=== PATIENT | male | born 1960 | race Caucasian/White ===

== ENCOUNTER 2017-01-12 20:46 | Inpatient (IN) | payer MEDICARE, OTHER ==
[~2017-01-12] VITALS: Ht 182.9 cm; Wt 117.9 kg
[2017-01-12] MEDS ORDERED: SODIUM CHLORIDE 0.9% 1,000ML IVBOLUS ONE (21:30)
[2017-01-12 22:19] LABS: ASPARTATE AMINO TRANSFERASE 19 U/L (15-37); BLOOD UREA NITROGEN 19 mg/dL (7-18)
[2017-01-12] MEDS ORDERED: SODIUM CHLORIDE 0.9% 1,000 ML IV ONE (22:57)
[2017-01-12] MEDS ORDERED: ONDANSETRON 2MG/ML, 2ML IVPush PRN ×2 (23:00→23:30)
[2017-01-12] MEDS ORDERED: ONDANSETRON 2MG/ML, 2ML ONE (23:09)
[2017-01-12] MEDS ORDERED: ENALAPRILAT 1.25 MG/ML, 2ML IVPush PRN (23:30)
[2017-01-12] MEDS ORDERED: DOCUSATE 100 MG CAPSULE PO PRN (23:30)
[2017-01-12] MEDS ORDERED: POLYETHYLENE GLYCOL 17 GM PACKET PO PRN (23:30)
[2017-01-12] MEDS ORDERED: morphine SULFATE 10 MG/ML, 1ML IVPush PRN (23:30)
[2017-01-12] MEDS ORDERED: hydrALAzine 20 MG/ML, 1ML IVPush PRN (23:30)
[2017-01-12] MEDS ORDERED: ACETAMINOPHEN 325 MG TABLET PO PRN (23:30)
[2017-01-12] MEDS ORDERED: BISACODYL 10 MG SUPP PR PRN (23:30)
[2017-01-12] MEDS ORDERED: OXYcodone IR 5MG TABLET PO PRN (23:30)
[2017-01-13] MEDS: SODIUM CHLORIDE 0.9% 1,000 ML IV SCH ×2 (00:16→06:39)
[2017-01-13 00:32] VITALS: BP 99/64
[2017-01-13 02:51] VITALS: BP 113/64
[2017-01-13 03:30] LABS: ASPARTATE AMINO TRANSFERASE 15 U/L (15-37); BLOOD UREA NITROGEN 17 mg/dL (7-18)
[2017-01-13 09:27] VITALS: BP 108/71
[2017-01-13 14:30] VITALS: BP 108/70
[2017-01-13 20:00] VITALS: BP 113/72
[2017-01-13] MEDS ORDERED: GOLYTELY 4,000ML ORAL.SOL PO ONE (20:00)
[2017-01-14] MEDS: SODIUM CHLORIDE 0.9% 1,000 ML IV SCH ×2 (01:12→14:20)
[2017-01-14 02:00] VITALS: BP 108/79
[2017-01-14 06:03] LABS: BLOOD UREA NITROGEN 11 mg/dL (7-18)
[2017-01-14] MEDS ORDERED: FENTANYL PF 100 MCG/2ML ONE (06:52)
[2017-01-14] MEDS ORDERED: MIDAZOLAM 1 MG/ML, 5ML ONE (06:52)
[2017-01-14 07:59] VITALS: BP 110/72
[2017-01-14 13:26] VITALS: BP 120/76
== END 2017-01-14 17:00 | disposition home or self-care (01) | DRG 378 ==
LOC: ED 22:19 → EDIP 23:30 → 4EST 01-13 00:07
PROVIDERS: ADMIT Internal Medicine
PROC: 0DJD8ZZ Inspection of Lower Intestinal Tract, Via Natural or Artificial Opening Endoscopic (ICD-10-PCS; principal; 2017-01-14 10:00)
DX: K57.31 Diverticulosis of large intestine without perforation or abscess with bleeding (principal); D62 Acute posthemorrhagic anemia; E44.0 Moderate protein-calorie malnutrition; R00.0 Tachycardia, unspecified; E66.9 Obesity, unspecified; K64.0 First degree hemorrhoids; Z96.659 Presence of unspecified artificial knee joint; Z91.018 Allergy to other foods; Z68.35 Body mass index [BMI] 35.0-35.9, adult
CPT/HCPCS: 36415; 80048; 80053; 80061; 81003; 83036; 83735; 84439; 84443; 85014; 85018; 85025; 85610; 86850; 86900; 87324; 93005; 96361; 96374; 99152; 99153; J2250; J2405; J3010; J7030

== ENCOUNTER 2019-01-11 11:33 | Emergency (ER) | payer MEDICARE, MEDICAID ==
[~2019-01-11] VITALS: Ht 182.9 cm; Wt 119.8 kg
[2019-01-11 11:41] VITALS: BP 156/110
[2019-01-11] MEDS ORDERED: OXYcodone/APAP 5/325MG TABLET ONE (12:10)
[2019-01-11] MEDS ORDERED: OXYcodone/APAP 5/325MG TABLET PO ONE (12:30)
== END 2019-01-11 13:03 | disposition home or self-care (01) ==
LOC: ED 12:41
DX: S60.031A Contusion of right middle finger without damage to nail, initial encounter (principal); W20.8XXA Other cause of strike by thrown, projected or falling object, initial encounter; Y93.89 Activity, other specified; Y92.009 Unspecified place in unspecified non-institutional (private) residence as the place of occurrence of the external cause; Y99.8 Other external cause status
CPT/HCPCS: 29130; 99283

== ENCOUNTER 2020-08-29 12:34 | Emergency (ER) | payer MEDICARE, MEDICAID ==
[~2020-08-29] VITALS: Ht 182.9 cm; Wt 121.5 kg
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
[2020-08-29] MEDS ORDERED: KETOROLAC 30 MG/1 ML ONE (12:57)
--- NOTE | 2020-08-29 12:58 | NUR ---
RECVD REPORT FROM JOHN GALARZA
[2020-08-29] MEDS ORDERED: KETOROLAC 30 MG/1 ML IM ONE (13:00)
[2020-08-29 13:59] VITALS: BP 150/88
--- NOTE | 2020-08-29 13:59 | NUR ---
OFFERED PT [facility] FOR HOME. SPLINT APPLIED BY TECH.
== END 2020-08-29 14:01 | disposition home or self-care (01) ==
LOC: ED 13:00
DX: S60.221A Contusion of right hand, initial encounter (principal); M79.89 Other specified soft tissue disorders; I10 Essential (primary) hypertension; X58.XXXA Exposure to other specified factors, initial encounter; Y93.89 Activity, other specified; Y92.89 Other specified places as the place of occurrence of the external cause; Y99.8 Other external cause status
CPT/HCPCS: 29125; 73130; 96372; 99283; J1885